=== PATIENT | male | born 1935 | race Caucasian/White ===

== ENCOUNTER → 2018-03-01 | Outpatient (CLI) | payer MEDICARE, BC | LOC: M RAD 08:26 | DX: N43.3 Hydrocele, unspecified (principal); N50.3 Cyst of epididymis | CPT/HCPCS: 76870 ==

== ENCOUNTER → 2021-11-19 | Outpatient (CLI) | payer MEDICARE, BC ==
[~2021-11-19] MED LIST: FAMO1TAB11; FINA5TAB2; LISI20TA35; SIMV10TA21
== END ==
LOC: M LABSMTC 11:26
PROVIDERS: ATTEND Anesthesiology
DX: Z01.818 Encounter for other preprocedural examination (principal); Z11.52 Encounter for screening for COVID-19

== ENCOUNTER 2021-11-24 11:23 | Day surgery (SDC) | payer MEDICARE, BC ==
[~2021-11-24] VITALS: Ht 175.3 cm; Wt 75.7 kg
[~2021-11-24 11:23] MED LIST changes: +CYCLOPENTOLATE 1% OPHTH SOLN 2 ML BTL OD SCH; +FLURBIPROFEN 0.03% OPHTH SOLN 2.5 ML OD SCH; +LR 1,000 ML IV SCH; +PHENYLEPHRINE 2.5% OPHTH SOL 2ML OD SCH; +TETRACAINE 0.5% OPHTH SOLN 4ML OD SCH
[2021-11-24] MEDS ORDERED: LIDOCAINE 1% SDV 5ML VIAL As Ordered ONE (11:50)
[2021-11-24] MEDS ORDERED: MIDAZOLAM INJ 2MG/2ML VIAL (J2250 PER 1MG) As Ordered ONE (13:25)
[2021-11-24 14:05] VITALS: BP 174/83
== END 2021-11-24 14:07 | disposition home or self-care (01) ==
LOC: M SDC 11:23
PROVIDERS: ATTEND Ophthalmology
DX: H25.11 Age-related nuclear cataract, right eye (principal); I10 Essential (primary) hypertension; E78.00 Pure hypercholesterolemia, unspecified; E78.5 Hyperlipidemia, unspecified; J30.9 Allergic rhinitis, unspecified; N40.1 Benign prostatic hyperplasia with lower urinary tract symptoms; G56.02 Carpal tunnel syndrome, left upper limb; Z79.899 Other long term (current) drug therapy
CPT/HCPCS: 66984; J2250; V2632

== ENCOUNTER → 2021-12-17 | Outpatient (CLI) | payer MEDICARE, BC ==
[~2021-12-17] MED LIST changes: -CYCLOPENTOLATE 1% OPHTH SOLN 2 ML BTL OD SCH; -FLURBIPROFEN 0.03% OPHTH SOLN 2.5 ML OD SCH; -LR 1,000 ML IV SCH; -PHENYLEPHRINE 2.5% OPHTH SOL 2ML OD SCH; -TETRACAINE 0.5% OPHTH SOLN 4ML OD SCH
== END ==
LOC: M LABSMTC 10:34
PROVIDERS: ATTEND Anesthesiology
DX: Z01.812 Encounter for preprocedural laboratory examination (principal); Z20.822 Contact with and (suspected) exposure to COVID-19

== ENCOUNTER 2021-12-22 09:14 | Day surgery (SDC) | payer MEDICARE, BC ==
[~2021-12-22] VITALS: Ht 175.3 cm; Wt 77.3 kg
[~2021-12-22 09:14] MED LIST changes: +CYCLOPENTOLATE 1% OPHTH SOLN 2 ML BTL OS SCH; +FLURBIPROFEN 0.03% OPHTH SOLN 2.5 ML OS SCH; +LIDOCAINE 1% SDV 5ML VIAL As Ordered ONE; +LR 1,000 ML IV SCH; +MIDAZOLAM INJ 2MG/2ML VIAL (J2250 PER 1MG) As Ordered ONE; +PHENYLEPHRINE 2.5% OPHTH SOL 2ML OS SCH; +TETRACAINE 0.5% OPHTH SOLN 4ML OS SCH
[2021-12-22 11:09] VITALS: BP 135/83
== END 2021-12-22 11:39 | disposition home or self-care (01) ==
LOC: M SDC 09:14
PROVIDERS: ATTEND Ophthalmology
DX: H25.12 Age-related nuclear cataract, left eye (principal); I10 Essential (primary) hypertension; Z79.899 Other long term (current) drug therapy; N40.0 Benign prostatic hyperplasia without lower urinary tract symptoms
CPT/HCPCS: 66984; J2250; V2632

== ENCOUNTER 2024-08-23 11:36 | Day surgery (SDC) | payer MEDICARE ==
[~2024-08-23] VITALS: Ht 175.3 cm; Wt 78.8 kg
[~2024-08-23 11:36] MED LIST changes: +AMLO1TAB24 PO; -CYCLOPENTOLATE 1% OPHTH SOLN 2 ML BTL OS SCH; +D-10TAB2 PO; +FAMO40TA3 PO; -FINA5TAB2; +FINA5TAB2 PO; -FLURBIPROFEN 0.03% OPHTH SOLN 2.5 ML OS SCH; -LIDOCAINE 1% SDV 5ML VIAL As Ordered ONE; -LR 1,000 ML IV SCH; -MIDAZOLAM INJ 2MG/2ML VIAL (J2250 PER 1MG) As Ordered ONE; -PHENYLEPHRINE 2.5% OPHTH SOL 2ML OS SCH; +TAMS1CAP17 PO; -TETRACAINE 0.5% OPHTH SOLN 4ML OS SCH; +VITA100062 PO
[2024-08-23] MEDS ORDERED: LIDOCAINE 2% 100MG/5ML SDV (FOR ANES.) As Ordered ONE (13:07)
[2024-08-23] MEDS ORDERED: dexmedeTOMIDine (4MCG/ML)200MCG/50ML BTL (PRECEDEX) As Ordered ONE (13:07)
[2024-08-23] MEDS ORDERED: fentaNYL 250 MCG/5 ML INJECTION As Ordered ONE (13:07)
[2024-08-23] MEDS ORDERED: ONDANSETRON 4MG 2ML VIAL As Ordered ONE (13:07)
[2024-08-23] MEDS ORDERED: ROCURONIUM BROMIDE 50MG/5ML VIAL As Ordered ONE (13:07)
[2024-08-23] MEDS ORDERED: propofoL 200 MG/20 ML VIAL As Ordered ONE (13:07)
[2024-08-23] MEDS: ceFAZolin SOD 2 GM IV ONCE IV ONE (13:55)
[2024-08-23] MEDS ORDERED: LACRILUBE (AKWA TEARS) OPHTH OINT 3.5GM As Ordered ONE (14:03)
[2024-08-23] MEDS ORDERED: ePHEDrine SULFATE 25 MG/5 ML(5MG/ML) SYRINGE As Ordered ONE (14:06)
[2024-08-23] MEDS ORDERED: PHENYLephrine 500MCG 5ML (100MCG/ML) SYRINGE As Ordered ONE (14:06)
[2024-08-23] MEDS ORDERED: SUGAMMADEX SODIUM 500 MG/5 ML VIAL (BRIDION) As Ordered ONE (14:34)
[2024-08-23] MEDS ORDERED: fentaNYL 100 MCG/2 ML INJECTION IV PRN (14:40)
[2024-08-23] MEDS ORDERED: MEPERIDINE 25 MG/ML 1ML VIAL IV PRN (14:40)
[2024-08-23] MEDS ORDERED: ONDANSETRON 4MG 2ML VIAL IV PRN (14:40)
[2024-08-23] MEDS ORDERED: LR 1,000 ML IV SCH (14:40)
[2024-08-23] MEDS ORDERED: diphenhydrAMINE 50MG/ML VIAL IV PRN (14:40)
[2024-08-23] MEDS ORDERED: METOCLOPRAMIDE INJ 10MG/2ML VIAL IV PRN (14:40)
[2024-08-23] MEDS ORDERED: oxyCODONE 5MG TAB PO PRN (14:40)
[2024-08-23] MEDS ORDERED: ACETAMINOPHEN 1000MG/100ML IV BAG As Ordered ONE (14:42)
[2024-08-23] MEDS ORDERED: LABETALOL 100MG/20ML VIAL As Ordered ONE (14:45)
[2024-08-23] MEDS ORDERED: BACT800T5 PO (15:06)
[2024-08-23 16:15] VITALS: BP 159/72; TEMP 97.5; O2SAT 96
== END 2024-08-23 16:32 | disposition home or self-care (01) ==
LOC: M SDC 11:36
PROVIDERS: ATTEND Urology
DX: N32.9 Bladder disorder, unspecified (principal); I10 Essential (primary) hypertension; N40.0 Benign prostatic hyperplasia without lower urinary tract symptoms; Z79.899 Other long term (current) drug therapy
CPT/HCPCS: 52235; 88305; J0131; J0690; J1100; J1920; J2371; J2405; J3010

== ENCOUNTER → 2025-01-22 | Outpatient (REF) | payer MEDICARE ==
[~2025-01-22] MED LIST changes: +BACT800T5 PO
== END ==
LOC: M SMT 12:40
PROVIDERS: ATTEND Urology
DX: D36.9 Benign neoplasm, unspecified site (principal)

== ENCOUNTER 2025-04-04 06:17 | Day surgery (SDC) | payer MEDICARE ==
[~2025-04-04] VITALS: Ht 175.3 cm; Wt 76.7 kg
[~2025-04-04 06:17] MED LIST changes: +ASCO500C3 PO
[2025-04-04] MEDS ORDERED: LIDOCAINE 2% 100 MG/5 ML SDV (FOR ANES.) As Ordered ONE (07:02)
[2025-04-04] MEDS ORDERED: MIDAZOLAM INJ 2 MG/2 ML VIAL As Ordered ONE (07:03)
[2025-04-04] MEDS: ceFAZolin SOD 2 GM IV ONCE IV ONE (07:28)
[2025-04-04] MEDS ORDERED: ACETAMINOPHEN 1000MG/100ML IV BAG As Ordered ONE (07:42)
[2025-04-04] MEDS: LIDOCAINE 1% SDV 30 ML VIAL As Ordered ONE (08:30)
[2025-04-04] MEDS ORDERED: ONDANSETRON 4MG/2ML VIAL As Ordered ONE (08:47)
[2025-04-04] MEDS ORDERED: dexAMETHasone 4 MG/ML 1 ML VIAL As Ordered ONE (08:47)
[2025-04-04] MEDS ORDERED: HYDROMORPHONE HCL 0.5 MG/0.5 ML SYRINGE IV PRN (09:00)
[2025-04-04] MEDS ORDERED: ONDANSETRON 4MG/2ML VIAL IV PRN (09:00)
[2025-04-04] MEDS ORDERED: OXYC1TAB23 PO (09:08)
[2025-04-04] MEDS ORDERED: CEPH500C PO (09:08)
[2025-04-04 10:25] VITALS: BP 139/89; TEMP 97.5; O2SAT 94
== END 2025-04-04 10:25 | disposition home or self-care (01) ==
LOC: M SDC 06:17
PROVIDERS: ATTEND Urology
DX: N43.3 Hydrocele, unspecified (principal); N50.3 Cyst of epididymis; I12.9 Hypertensive chronic kidney disease with stage 1 through stage 4 chronic kidney disease, or unspecified chronic kidney disease; N18.30 Chronic kidney disease, stage 3 unspecified; N40.0 Benign prostatic hyperplasia without lower urinary tract symptoms; K21.9 Gastro-esophageal reflux disease without esophagitis; Z79.899 Other long term (current) drug therapy
CPT/HCPCS: 54830; 55040; 88302; 88304; J0131; J0665; J0688; J1100; J2250; J2405; J3010